=== PATIENT | female | born 1940 | race Caucasian/White ===

== ENCOUNTER → 2024-01-06 10:56 | Outpatient (REF) | payer OTHER, SELFPAY | LOC: RAD 10:56 | PROVIDERS: ATTENDING PHYSICIAN Surgery Vascular Surgery; FAMILY PHYSICIAN Nurse Practitioner Family | DX: Q27.8 Other specified congenital malformations of peripheral vascular system (principal); I77.1 Stricture of artery | CPT/HCPCS: 93923; 93930 ==

== ENCOUNTER → 2025-01-03 10:48 | Outpatient (REF) | payer OTHER, SELFPAY | LOC: DHVS 10:48 | PROVIDERS: ATTENDING PHYSICIAN Surgery Vascular Surgery; FAMILY PHYSICIAN Nurse Practitioner Family | DX: I77.1 Stricture of artery (principal) | CPT/HCPCS: 93923; 93930 ==